=== PATIENT | female | born 1950 | race Caucasian/White ===

== ENCOUNTER 2025-01-09 08:00 | Outpatient (CLI) | payer MEDICARE | END 2025-01-09 08:01 | disposition home or self-care (01) | LOC: PET 08:00 | PROVIDERS: ATTEND Obstetrics & Gynecology Gynecologic Oncology | DX: C54.1 Malignant neoplasm of endometrium (principal); Z96.89 Presence of other specified functional implants | CPT/HCPCS: 78815; A9552 ==